=== PATIENT | male | born 1995 | race Two or more races ===

== ENCOUNTER 2024-07-03 05:31 | Emergency (ER) | payer SELFPAY ==
--- NOTE | ~2024-07-03 | CT_ITS ---
History: Fall, loss of consciousness PROCEDURE: CT head without contrast. COMPARISON: None TECHNIQUE: Axial imaging of the head performed from the skull base to the vertex without IV contrast. Sagittal a nd coronal reformations obtained. DLP: 756 mGy-cm FINDINGS: The ventricles are normal in size, shape and position. There is no mass, mass effect or midline shift. There is no abnormal extra-axial fluid collection or intracranial hemorrhage. Visualized paranasal sinuses are clear. The mastoid air cells are well aerated. No acute displaced fractures within the overlying cranium. Impression: No acute intracranial hemorrhage or suspicious mass effect. Reviewed, dictated and finalized at location A. R Impression: No acute intracranial hemorrhage or suspicious mass effect.
--- NOTE | ~2024-07-03 | CT_ITS ---
History: Fall PROCEDURE: CT cervical spine without intravenous contrast. COMPARISON: None TECHNIQUE: Multiple contiguous axial images of the cervical spine were performed without the administration of i ntravenous contrast. DLP: 312 mGy-cm FINDINGS: Preservation of the normal curvature of the cervical spine is identified, likely muscular in origin. No acute fractures are present. The bilateral lung apices are unremarkable. No soft tissue abnormality is present. The airway is patent. Impression: No acute fracture. Reviewed, dictated and finalized at location A. [employer] Impression: No acute fracture.
[2024-07-03 05:31] VITALS: BP 130/78; PULSE 76; RESP 22; TEMP 36.3; O2SAT 100
--- NOTE | 2024-07-03 05:45 | ECG_ITS ---
Test Date: 2024-07-03 05:49:46 Measurements Intervals [place] Rate: 74 P: 75 [place]: 169 QRS: 87 QRSD: 86 T: 71 QT: 370 QTc: 411 Interpretive Statements SINUS RHYTHM No previous ECG available for comparison Electronically Signed On 07-03-2024 10:07:20 [employer] by Damián Nicole M.D.
--- NOTE | 2024-07-03 05:53 | PC.NURSE ---
Patient advised 6 times to keep C collar on. Pt states it is too uncomfortable. This RN left the room and came back to the C collar laying on the bed. Pt refused to put it back on.
[2024-07-03 06:17] VITALS: BP 130/78; PULSE 76; RESP 22; TEMP 36.3; O2SAT 100
--- NOTE | 2024-07-03 07:24 | ED.GENADULT ---
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 Patient states that he was in his truck and felt like he was going to pass out. Patient opened the door and fell from the vehicle and struck his face on the ground. Patient denies any loss of consciousness at that point. Patient states he no longer feels like he is going to pass out. Patient denied any illness prior to the near syncopal episode. Patient declined any labs and declined IV rehydration. Related Data Allergies Allergy/AdvReac Type Severity Reaction Status Date / Time No Known Allergies Allergy Verified 07/03/24 07:35 Review of Systems Review of Systems: All systems reviewed & are unremarkable except as noted in HPI and below Exam Narrative: APPEARANCE: Well appearing, no pain, no distress, well-nourished. HEAD: normocephalic, atraumatic. EYES: PERRLA/EOMI, conjunctivae clear. NOSE: Normal no drainage EARS:TMS clear with good light reflex. THROAT: Pharynx clear, no exudate. NECK: Supple. No adenopathy, no masses. RESPIRATORY: Airway patent, respirations nonlabored. Clear to auscultation bilaterally, no rales, rhonchi, wheezing. CARDIOVASCULAR: Regular rate and rhythm without murmurs rubs or gallops. ABDOMINAL: Soft, nontender, nondistended, normal bowel sounds MUSCULOSKELETAL: Moves all extremities. Strength/ROM intact, No edema, No calf tenderness. NEURO: Alert. Cranial nerves II through XII intact. Grossly intact SKIN: Facial laceration over right zygomatic Course Vital Signs Vital signs: Vital Signs Temperature 97.4 F L 07/03/24 05:31 Pulse Rate 76 07/03/24 05:31 Respiratory Rate 22 H 07/03/24 05:31 Blood Pressure 130/78 07/03/24 05:31 Pulse Oximetry 100 07/03/24 05:31 Oxygen Delivery Room Air 07/03/24 05:31 Temperature 97.4 F L 07/03/24 06:17 Pulse Rate 79 07/03/24 09:05 Respiratory Rate 17 07/03/24 09:05 Blood Pressure 125/50 L 07/03/24 09:05 Pulse Oximetry 100 07/03/24 09:05 Oxygen Delivery Room Air 07/03/24 05:31 Procedures Laceration Laceration 1: Date: 07/03/24 Time: 09:00 Site: face Side (If applicable): right Size (cm): 3 Description: stellate and irregular Depth: simple, single layer Local Anesthetic: lidocaine 1% Amount of anesthesia used (mL): 3 Pre-repair: wound explored, irrigated and irrigated extensively ====== Skin Level ====== Skin layer closed with: prolene Size (cm): 6-0 Number of sutures: 6 Technique: simple, interrupted ====== Subcutaneous Layer ====== ====== Muscle Layer ====== ====== Tendon Layer ====== Medical Decision Making MDM Narrative Medical decision making narrative: 28-year-old male presents to the emergency department for evaluation after having a fall. Patient does have facial abrasions and a facial laceration that was repaired as described in the procedure note. Patient declined any additional workup including IV labs and patient declined a tetanus. Head and facial CT were negative. Patient was encouraged of close follow-up with primary care physician. Patient was comfortable the plan for discharge and close follow-up. All questions concerns were addressed. Differential Diagnosis Differential Diagnosis: Facial fracture, cardiac arrhythmia, dehydration, subdural hematoma, subarachnoid hemorrhage Vital Signs Vital Signs: Vital Signs Temperature 97.4 F L 07/03/24 05:31 Pulse Rate 76 07/03/24 05:31 Respiratory Rate 22 H 07/03/24 05:31 Blood Pressure 130/78 07/03/24 05:31 Pulse Oximetry 100 07/03/24 05:31 Oxygen Delivery Room Air 07/03/24 05:31 Temperature 97.4 F L 07/03/24 06:17 Pulse Rate 79 07/03/24 09:05 Respiratory Rate 17 07/03/24 09:05 Blood Pressure 125/50 L 07/03/24 09:05 Pulse Oximetry 100 07/03/24 09:05 Oxygen Delivery Room Air 07/03/24 05:31 ECG Data EKG #1: EKG Interpretation: normal rate, sinus rhythm, no ectopy, no ST changes, normal QRS and NL axis Discharge Plan Discharge Clinical Impression: Head injury, Complex laceration of face Patient Disposition: Home, Self-Care Condition: Stable Instructions: Antibiotic Form, Laceration (ED), Head Injury (ED) Additional Instructions: Antibiotics as directed until completed. Your sutures need to be removed in 5-7 days. Have close follow-up with your primary care physician. You declined any medical workup, please have close follow-up with your primary care physician. Patient Language: Norwegian Prescriptions: New cephalexin 500 mg capsule 500 mg PO Q8H 7 Days Qty: 21 0RF Follow-up/Referrals: [facility]IC[facility] [Primary Care Provider] -
[2024-07-03 09:05] VITALS: BP 125/50; PULSE 79; RESP 17; O2SAT 100
== END 2024-07-03 09:19 | disposition home or self-care (01) ==
PROVIDERS: Emergency Provider Emergency Medicine
DX: S01.411A Laceration without foreign body of right cheek and temporomandibular area, initial encounter (principal); W19.XXXA Unspecified fall, initial encounter; Z23 Encounter for immunization
CPT/HCPCS: 12013; 70450; 70486; 72125; 90471; 90715; 93005; 99284; J2004